=== PATIENT | female | born 1940 ===

== ENCOUNTER 2017-01-22 19:01 | Emergency (ER) | payer MEDICARE ==
[2017-01-22 19:11] VITALS: BMI 23.4
--- NOTE | 2017-01-22 19:40 | ED PDOC ---
Arrival/HPI - General Historian: Patient - General Chief Complaint: Back Pain Time Seen by Provider: 01/22/17 19:24 - History of Present Illness Narrative History of Present Illness (Text): 01/22/17 19:32 76yr old female presents today with neck pain, low back pain and right hip pain s/p fall. pt states yesterday she slipped on water and fell landing on the right side. pt c/o of headache but denies hitting her head. no dizziness or weakness. pt states she has taken tylenol for pain without relief. denies numbness, weakness or tingling in the extremities. no abdominal pain. no n/v. pt also c/o left ankle pain. no other complaints. (Keesha Wu) Past Medical History - Provider Review Nursing Documentation Reviewed: Yes - Travel History Have you recently traveled outside [place] w/in the past 3 mons?: No - Infectious Disease Hx of Infectious Diseases: None - Tetanus Immunization Tetanus Immunization: Unknown - Reproductive Menopause: Yes - Cardiac Hx Hypertension: Yes - Neurological HX Cerebrovascular Accident: Yes - Renal Hx Kidney Stones: Yes - Gastrointestinal Hx Gastrointestinal Disorders: Yes - Psychiatric Hx Depression: No Hx Emotional Abuse: No Hx Physical Abuse: No Hx Substance Use: No - Anesthesia Hx Anesthesia: Yes - Suicidal Assessment Feels Threatened In Home Enviroment: No Family/Social History - Physician Review Nursing Documentation Reviewed: Yes Family/Social History: Unknown Family HX Smoking Status: Never Smoked Hx Alcohol Use: No Hx Substance Use: No Hx Substance Use Treatment: No Allergies/Home Meds Allergies/Adverse Reactions: Allergies No Known Allergies Allergy (Verified 08/17/16 08:12) Home Medications: Home Meds Medication Instructions Recorded Confirmed Atorvastatin Calcium [Lipitor] 40 mg PO DAILY 07/09/14 01/22/17 amLODIPine [Norvasc] 5 mg PO DAILY 08/17/16 01/22/17 Cholecalciferol (Vitamin D3) 1 cap PO DAILY 01/22/17 01/22/17 [Vitamin D3] Review of Systems - Review of Systems Constitutional: absent: Fatigue, Fevers Eyes: absent: Vision Changes, Photophobia, Eye Pain ENT: absent: Sinus Congestion Respiratory: absent: SOB, Cough Cardiovascular: absent: Chest Pain, Palpitations Gastrointestinal: absent: Abdominal Pain, Nausea, Vomiting Genitourinary Female: absent: Dysuria Musculoskeletal: Arthralgias (left ankle, right hip pain), Back Pain, Neck Pain Skin: absent: Rash, Pruritis Neurological: Headache. absent: Dizziness, Focal Weakness, Speech Changes Physical Exam Vital Signs Reviewed: Yes Temperature: Afebrile Blood Pressure: Hypertensive Pulse: Regular Respiratory Rate: Normal Appearance: Positive for: Well-Appearing, Non-Toxic, Comfortable Pain Distress: None Mental Status: Positive for: Alert and Oriented X 3 - Systems Exam Head: Present: Atraumatic Pupils: Present: PERRL Extroacular Muscles: Present: EOMI Conjunctiva: Present: Normal Neck: Present: Normal Range of Motion, MIDLINE TENDERNESS, Paraspinal Tenderness (right sided), Trachea Midline Respiratory/Chest: Present: Clear to Auscultation, Good Air Exchange. No: Respiratory Distress, Accessory Muscle Use Cardiovascular: Present: Regular Rate and Rhythm, Normal S1, S2. No: Murmurs Abdomen: No: Tenderness Back: Present: Normal Inspection, Paraspinal Tenderness (+ right sided low lumbar paraspinal tenderness. ). No: Midline Tenderness Upper Extremity: Present: Normal Inspection, Normal ROM Lower Extremity: Present: Normal Inspection, Normal ROM, Tenderness (+ ttp over anterior left ankle; no edema, no erythema; no ecchymosis; pelvis stable; + ttp over lateral aspect of right hip greatest over the greater trochanter. no edema, no erythema, no ecchymosis; ambulates with steady gait. sensation and distal pulses intact. ), Neurovascularly Intact, Capillary Refill < 2 s. No: Swelling, Erythema, Deformity, Temperature Abnormalties Skin: Present: Warm, Dry Psychiatric: Present: Alert, Oriented x 3 Vital Signs Temp Pulse Resp BP Pulse Ox 01/22/17 20:39 76 16 163/78 H 99 01/22/17 19:15 98.7 F 91 H 18 173/80 H 98 Medical Decision Making ED Course and Treatment: I was available for consultation during PA evaluation. The chart was reviewed by me, and I agree with disposition. The documented history was done by the physician roll on man. The documented physical exam was done by the physician roll on man. The documented procedures were done by the physician roll on man. ( Didier Cespedes) 01/22/17 19:45 pt non toxic well appearing; no distress. refusing injection for pain; tramadol given PO ct head; FINDINGS: Brain: Ventricles are normal in size. There is no midline shift. There is patchy decrease attenuation in periventricular white matter.There are no intra-axial or extra-axial mass lesions or areas of hemorrhage. There are no abnormal fluid collections. Broussard-white differentiation is maintained. Ventricles: See above. Bones/joints: Bones: Cranial vault is intact. Soft tissues: unremarkable Sinuses: There is no acute sinusitis. Mastoid air cells: Ears and mastoids: Middle ears and mastoids are unremarkable Orbits: Orbital contents are unremarkable. IMPRESSION: Small vessel disease, no acute intracranial abnormality ct c-spine: FINDINGS: Vertebrae: There is straightening of the cervical lordosis. There is no prevertebral soft tissue swelling. There are no fractures. There are degenerative changes at multiple levels. There is mild narrowing of the predental space. There is disc space narrowing C4/C5. There is small degenerative osteophytes at multiple levels. There is mild bony encroachment on the C4-5 neural foramina on the right. There is sclerosis in the left T2 transverse process.Facet joints align anatomically.Spinous processes align in the expected fashion. Discs/spinal canal/neural foramina: See above. Soft tissues: See above. Vasculature: There are vascular calcifications. Thyroid: Thyroid is unremarkable Lung apices: There is scarring and pleural thickening at the lung apices. Other findings: Airway is unremarkable IMPRESSION: Degenerative change, no fracture hip right xray no fx left ankle xray; no fx LS spine; no fx pt reassessment; pt feeling better with medications i discussed all results in depth with patient; advised f/u with pmd and orthopedist. advised immediate return if symptoms worsen,persist or if new symptoms develop. pt verbalized understanding of d/c instructions and need for f/u. impression; fall, neck pain, back pain, hip pain, ankle pain tramadol every 6 hours as needed for moderate to severe pain; may cause drowsiness follow up with the orthopedist within the next 2 days follow up with the primary care physician within the next 2 days return if symptoms worsen,persist or if new symptoms develop. (Keesha Wu) - RAD Interpretation Radiology Orders: 01/22/17 19:40 CERVICAL SPINE W/O CONTRAST [CT] Stat HEAD W/O CONTRAST [CT] Stat ANKLE LEFT 3 VIEWS ROUTINE [RAD] Stat Hip Right [HIP MIN 2V W/ PELVIS RT] [RAD] Stat LS SPINE WITH OBL > 18 YRS OLD [RAD] Stat - Medication Orders Current Medication Orders: Discontinued Medications Tramadol HCl (Ultram) 50 mg PO STAT STA Stop: 01/22/17 19:41 Last Admin: 01/22/17 19:53 Dose: 50 MG Disposition/Present on Arrival - Present on Arrival Any Indicators Present on Arrival: No History of DVT/PE: No History of Uncontrolled Diabetes: No Urinary Catheter: No History of Decub. Ulcer: No History Surgical Site Infection Following: None - Disposition Have Diagnosis and Disposition been Completed?: Yes Disposition Time: 21:13 Patient Plan: Discharge - Disposition Diagnosis: Ankle pain, Back pain, Neck pain, Hip pain Disposition: HOME/ ROUTINE Patient Problems: Current Active Problems Problem Status Diagnosed Ankle pain Acute Back pain Acute Hip pain Acute Neck pain Acute Condition: GOOD Discharge Instructions (ExitCare): Back Pain (ED), Hip Contusion (ED), Arthralgia (ED) Additional Instructions: tramadol every 6 hours as needed for moderate to severe pain; may cause drowsiness follow up with the orthopedist within the next 2 days follow up with the primary care physician within the next 2 days return if symptoms worsen,persist or if new symptoms develop. Prescriptions: traMADol [Ultram] 50 mg PO Q6H PRN #8 tab PRN Reason: moderate to severe pain Referrals: Catracho Haddad MD [Primary Care Provider] - Follow up with primary Vikram Zimmerman III, MD [Medical Doctor] - Follow up with primary
[2017-01-22 20:40] VITALS: O2SAT 99
--- NOTE | 2017-01-22 20:57 | CT ---
EXAM: CT Head Without Intravenous Contrast CLINICAL HISTORY: 76 years old, female; Injury or trauma; Fall; Initial encounter; Blunt trauma (contusions or hematomas); Injury date: 01/21/17; Additional info: Headache TECHNIQUE: Axial computed tomography images of the head/brain without intravenous contrast. This CT exam was performed using one or more of the following dose reduction techniques: automated exposure control, adjustment of the mA and/or kV according to patient size, and/or use of iterative reconstruction technique. EXAM DATE/TIME: 01/22/2017 7:40 PM COMPARISON: CT - HEAD W/O CONTRAST 08/17/2016 10:43:22 AM FINDINGS: Brain: Ventricles are normal in size. There is no midline shift. There is patchy decrease attenuation in periventricular white matter.There are no intra-axial or extra-axial mass lesions or areas of hemorrhage. There are no abnormal fluid collections. Broussard-white differentiation is maintained. Ventricles: See above. Bones/joints: Bones: Cranial vault is intact. Soft tissues: unremarkable Sinuses: There is no acute sinusitis. Mastoid air cells: Ears and mastoids: Middle ears and mastoids are unremarkable Orbits: Orbital contents are unremarkable. IMPRESSION: Small vessel disease, no acute intracranial abnormality
--- NOTE | 2017-01-22 21:03 | CT ---
EXAM: CT Cervical Spine Without Intravenous Contrast CLINICAL HISTORY: 76 years old, female; Injury or trauma; Fall; Initial encounter; Blunt trauma; Injury date: 01/21/17; Additional info: Neck pain TECHNIQUE: Axial computed tomography images of the cervical spine without intravenous contrast. This CT exam was performed using one or more of the following dose reduction techniques: automated exposure control, adjustment of the mA and/or kV according to patient size, and/or use of iterative reconstruction technique. Coronal and sagittal reformatted images were created and reviewed. EXAM DATE/TIME: 01/22/2017 7:40 PM COMPARISON: There are no prior studies for comparison. FINDINGS: Vertebrae: There is straightening of the cervical lordosis. There is no prevertebral soft tissue swelling. There are no fractures. There are degenerative changes at multiple levels. There is mild narrowing of the predental space. There is disc space narrowing C4/C5. There is small degenerative osteophytes at multiple levels. There is mild bony encroachment on the C4-5 neural foramina on the right. There is sclerosis in the left T2 transverse process.Facet joints align anatomically.Spinous processes align in the expected fashion. Discs/spinal canal/neural foramina: See above. Soft tissues: See above. Vasculature: There are vascular calcifications. Thyroid: Thyroid is unremarkable Lung apices: There is scarring and pleural thickening at the lung apices. Other findings: Airway is unremarkable IMPRESSION: Degenerative change, no fracture
[2017-01-22 21:28] VITALS: BP 170/88; PULSE 77; RESP 18; TEMP 98
--- NOTE | 2017-01-23 08:55 | RAD ---
PROCEDURE: Right Hip and pelvis Radiographs. HISTORY: hip pain COMPARISON: None. FINDINGS: BONES: Normal. No fracture. JOINTS: Normal. SOFT TISSUES: Normal. OTHER FINDINGS: None. IMPRESSION: Negative study
--- NOTE | 2017-01-23 08:55 | RAD ---
PROCEDURE: Radiographs of the Lumbar Spine. HISTORY: back pain COMPARISON: No prior. FINDINGS: BONES: Normal alignment. No listhesis. No fracture. DISC SPACES: Unremarkable. OTHER FINDINGS: None. IMPRESSION: Unremarkable radiographs of the lumbar spine.
--- NOTE | 2017-01-23 08:59 | RAD ---
PROCEDURE: Left Ankle Radiographs. HISTORY: ankle pain s/p fall COMPARISON: None FINDINGS: BONES: Normal. No fracture. JOINTS: Normal. No osteoarthritis. Ankle mortise maintained. Talar dome intact SOFT TISSUES: Normal. OTHER FINDINGS: None. IMPRESSION: Normal left ankle radiographs.
== END 2017-01-22 21:27 | disposition home or self-care (01) ==
LOC: ED 19:01
DX: M25.572 Pain in left ankle and joints of left foot (principal); M54.9 Dorsalgia, unspecified; M54.2 Cervicalgia; M25.551 Pain in right hip

== ENCOUNTER 2018-06-22 12:27 | Emergency (ER) | payer MEDICARE ==
[2018-06-22 13:16] VITALS: BMI 22.8
[2018-06-22 13:23] VITALS: RESP 18; O2SAT 97
[2018-06-22] MEDS ORDERED: Bacitracin Ointment 30 GM TUBE TOP ONE (13:36)
[2018-06-22] MEDS ORDERED: TDAP Vaccine 0.5 mL Syr IM ONE (13:37)
--- NOTE | 2018-06-22 13:41 | ED PDOC ---
Arrival/HPI - General Chief Complaint: Burn Time Seen by Provider: 06/22/18 13:35 Historian: Patient - History of Present Illness Narrative History of Present Illness (Text): 06/22/18 13:37 77 year old female, whose past medical history includes hypertension, presents to the emergency department complaining of burn to her left hand. Patient was in the cafeteria buying soup when the soup fell on her hand burning the left hand. The burn is located on the web between the 1st and 2nd finger. Her Tetanus is not up to date. Patient reports some pain, but denies rash, back pain , neck pain, headache, dizziness, or any other complaints. PMD: Dr. Haddad Time/Duration: Prior to Arrival Symptom Onset: Sudden Symptom Course: Unchanged Activities at Onset: Light Context: Other (Cafeteria) Past Medical History - Provider Review Nursing Documentation Reviewed: Yes - Infectious Disease Hx of Infectious Diseases: None - Tetanus Immunization Tetanus Immunization: Unknown - Reproductive Menopause: Yes - Cardiac Hx Hypertension: Yes - Neurological HX Cerebrovascular Accident: Yes - Renal Hx Kidney Stones: Yes - Gastrointestinal Hx Gastrointestinal Disorders: Yes - Psychiatric Hx Depression: No Hx Emotional Abuse: No Hx Physical Abuse: No Hx Substance Use: No - Anesthesia Hx Anesthesia: Yes - Suicidal Assessment Feels Threatened In Home Enviroment: No Family/Social History - Physician Review Nursing Documentation Reviewed: Yes Family/Social History: No Known Family HX Smoking Status: Never Smoked Hx Alcohol Use: No Hx Substance Use: No Hx Substance Use Treatment: No Allergies/Home Meds Allergies/Adverse Reactions: Allergies No Known Allergies Allergy (Verified 06/22/18 13:23) Home Medications: Home Meds Medication Instructions Recorded Confirmed Atorvastatin Calcium [Lipitor] 40 mg PO DAILY 07/09/14 06/22/18 amLODIPine [Norvasc] 5 mg PO DAILY 08/17/16 06/22/18 Cholecalciferol (Vitamin D3) 1 cap PO DAILY 01/22/17 06/22/18 [Vitamin D3] Review of Systems - Physician Review All systems were reviewed & negative as marked: Yes - Review of Systems Skin: Other (Burn to the left hand on the web between the 1st and 2nd finger ). absent: Rash Neurological: absent: Headache, Dizziness Physical Exam Vital Signs Reviewed: Yes Vital Signs Temp Pulse Resp BP Pulse Ox 06/22/18 13:16 98.4 F 77 18 159/70 H 97 Temperature: Afebrile Blood Pressure: Hypertensive Pulse: Regular Respiratory Rate: Normal Appearance: Positive for: Well-Appearing, Non-Toxic, Comfortable Pain Distress: None Mental Status: Positive for: Alert and Oriented X 3 - Systems Exam Head: Present: Atraumatic, Normocephalic Pupils: Present: PERRL Extroacular Muscles: Present: EOMI Conjunctiva: Present: Normal Mouth: Present: Moist Mucous Membranes Neck: Present: Normal Range of Motion Respiratory/Chest: Present: Clear to Auscultation, Good Air Exchange. No: Respiratory Distress, Accessory Muscle Use Cardiovascular: Present: Regular Rate and Rhythm, Normal S1, S2. No: Murmurs Abdomen: No: Tenderness, Distention, Peritoneal Signs Back: Present: Normal Inspection Upper Extremity: Present: Erythema, Other (1st degree burn over the web between the 1st and 2nd finger with some redness. No blister). No: Cyanosis, Edema Lower Extremity: Present: Normal Inspection. No: Edema Neurological: Present: GCS=15, CN II-XII Intact, Speech Normal Skin: Present: Warm, Dry, Normal Color. No: Rashes Psychiatric: Present: Alert, Oriented x 3, Normal Insight, Normal Concentration Medical Decision Making ED Course and Treatment: 06/22/18 13:46 Impression: 77 year old female presents complaining of a burn to the left hand over the web between 1st and 2nd finger after spilling soup on her hand. Plan: -- bacitracin, Boostrix Vaccine Inj, Tylenol -- Reassess and disposition Progress Notes: 06/22/18 14:14 On re-evaluation, patient feels better and is in no acute distress. I have discussed the results and plan with the patient, who expresses understanding. Patient in agreement with plan to be discharged home. Patient is stable for discharge. Patient was instructed to follow up with physician or return if symptoms worsen or new concerning symptoms arise. - Medication Orders Current Medication Orders: Discontinued Medications Acetaminophen (Tylenol 325mg Tab) 650 mg PO STAT STA Stop: 06/22/18 13:37 Last Admin: 06/22/18 13:57 Dose: 650 mg Bacitracin (Bacitracin) 30 gm TOP ONCE ONE Stop: 06/22/18 13:37 Last Admin: 06/22/18 14:00 Dose: 1 oin Tetanus/Reduced Diphtheria/Acell Pertussis (Boostrix Vaccine Inj) 0.5 ml IM .ONCE ONE Stop: 06/22/18 13:38 Last Admin: 06/22/18 13:58 Dose: 0.5 ml MAR Immunization Data Document 06/22/18 13:58 [facility] (Rec: 06/22/18 13:59 [facility]-[id number]) Immunization Data Vaccine Information Sheet Given No Immunization Registry Document 06/22/18 13:58 [facility] (Rec: 06/22/18 13:59 [id number] Immunization Registry Consent Date 11/29/17 - Scribe Statement The provider has reviewed the documentation as recorded by the Scribe Dee Lees Provider Scribe Attestation: All medical record entries made by the Scribe were at my direction and personally dictated by me. I have reviewed the chart and agree that the record accurately reflects my personal performance of the history, physical exam, medical decision making, and the department course for this patient. I have also personally directed, reviewed, and agree with the discharge instructions and disposition. Disposition/Present on Arrival - Present on Arrival History of DVT/PE: No History of Uncontrolled Diabetes: No Urinary Catheter: No History of Decub. Ulcer: No History Surgical Site Infection Following: None - Disposition Diagnosis: First degree burn Disposition: HOME/ ROUTINE Patient Problems: Current Active Problems Problem Status Onset First degree burn Acute Discharge Instructions (ExitCare): Skin Andrade Prescriptions: Acetaminophen [Tylenol 325mg tab] 650 mg PO Q4 #20 tab Bacitracin OINT 30 g TOP Q12 #1 tube Referrals: Catracho Haddad MD [Primary Care Provider] - Follow up with primary Forms: [employer] ([place])
[2018-06-22] MEDS ORDERED: Bacitracin 500 Units/gm Oint Foilpak UD ONE (13:54)
[2018-06-22 14:44] VITALS: BP 159/62; PULSE 62; TEMP 98
== END 2018-06-22 14:44 | disposition home or self-care (01) ==
LOC: ED 12:27
DX: T23.102A Burn of first degree of left hand, unspecified site, initial encounter (principal); X10.1XXA Contact with hot food, initial encounter; Y92.89 Other specified places as the place of occurrence of the external cause; I10 Essential (primary) hypertension; Z23 Encounter for immunization

== ENCOUNTER 2019-02-16 09:45 | Outpatient (CLI) | payer MEDICARE | END 2019-02-16 09:46 | disposition home or self-care (01) | LOC: RAD 09:45 ==